=== PATIENT | female | born 1980 | race Caucasian/White ===

== ENCOUNTER → 2023-01-04 | Outpatient (CLI) | payer BC ==
--- NOTE | 2023-01-04 07:41 | MR ---
EXAMINATION TYPE: MR shoulder LT wo con DATE OF EXAM: 01/04/2023 COMPARISON: None. HISTORY: Left shoulder and elbow pain, decreased ROM x 4 mos. TECHNIQUE: Multiplanar, multisequence imaging of the left shoulder is performed without contrast. FINDINGS: Rotator Cuff: Distal supraspinatus and infraspinatus tendons are intact. Rotator cuff muscle bulk is preserved. Acromioclavicular Joint: Mild capsular hypertrophy. Underlying fat plane maintained. No significant s purring. Distal acromion morphology unremarkable. Glenohumeral Joint: No significant effusion. No significant spurring. Labrum: The labrum appears grossly intact given limitation of non-arthrogram study. Biceps Tendon: The long head of biceps is in normal location within bicipital groove. Bone marrow signal: There is some subchondral cystic change involving the posterior humeral head. Other: No additional significant abnormality is appreciated. IMPRESSION: 1. No rotator cuff or labral tear is seen.
== END | disposition home or self-care (01) ==
LOC: RADMRIMAIN 06:25
PROVIDERS: ATTEND Orthopaedic Surgery
DX: M25.512 Pain in left shoulder (principal)